=== PATIENT | female | born 1995 | race Caucasian/White ===

== ENCOUNTER 2016-07-25 22:02 | Emergency (ER) | payer BC ==
[~2016-07-25] VITALS: Ht 165.1 cm; Wt 55.7 kg
[2016-07-25 22:11] VITALS: TEMP 36.7; Ht 165.1 cm; Wt 55.7 kg
[2016-07-25] MEDS ORDERED: ONDANSETRON INJ 2 MG/ML 2 ML VIAL IV STA (22:35)
[2016-07-25] MEDS ORDERED: SODIUM CHLORIDE 0.9% 1000ML 1,000 ML IV STA (22:35)
[2016-07-25] MEDS ORDERED: BCPILLS PO (22:39)
[2016-07-25] MEDS ORDERED: OPTIRAY 320 IV PRN (22:45)
[2016-07-25 23:02] LABS: BASO % 0.1 %; BASO ABS # 0.02 K/uL (0-0.2); COMPLETE YES; EOS % 0.2 %; IG% 0.2 %; LYMPH % 12.9 %; LYMPH ABS # 1.93 K/uL (1.2-3.4); MEAN CELL VOLUME 85.3 fL (80-100); MEAN CORPUSCULAR HEMOGLOBIN 31.1 pg (25-34); MEAN CORPUSCULAR HGB CONC 36.4 g/dl (32-36); MEAN PLATELET VOLUME 9.5 fL (7.4-10.4); MONO % 3.4 %; NEUT % 83.2 %; PLATELET COUNT 364 K/uL (130-400); RED BLOOD COUNT 4.57 M/uL (4.2-5.4); WHITE BLOOD COUNT 14.98 K/uL (4.8-10.8)
[2016-07-25 23:05] LABS: ISTAT CREATININE 0.7 mg/dl; ISTAT IONIZED CALCIUM 1.16 mmol/l
[2016-07-25 23:17] LABS: BUN/CREATININE RATIO 13.6 (10-20); CALCIUM 9.7 mg/dl (8.5-10.1); CREATININE 0.9 mg/dl (0.60-1.20); POTASSIUM 3.7 mmol/L (3.5-5.1)
[2016-07-25 23:25] LABS: PREG INTERNAL NEGATIVE QC NEG CLEAR BACKGROUND; PREG INTERNAL POSITIVE QC POS CONTROL LINE
--- NOTE | 2016-07-25 23:41 | EMERGENCY ROOM VISIT NOTE ---
History Report prepared by Melo: Chanel Wills Under the Supervision of: Kal BorjasO. First contact with patient: 22:23 Chief Complaint: VOMITING Stated Complaint: VOMITING,BLURRED VISION, HAQ History of Present Illness The patient is a 20 year old female who presents to the Emergency Room with complaints of a constant headache for the past 8 hours. She was in class this afternoon whenever she developed "hazy" and "splotchy" vision. She denies double vision but reports that she felt like she did not have any peripheral vision. She returned home from class at about 4pm and developed nausea and vomiting. She states that she has been getting hot and dizzy throughout the day. Her headache has persisted. It is worse with walking around and vomiting. Her headache is located behind her left eye. The patient denies any personal history of migraines, but her mother has a history of migraine headaches so she took an Excedrin Migraine. She states that she vomited soon after taking the medication. She rates her pain as an 8/10. The patient denies fevers. She has never experienced symptoms like this before. She takes a BCP. Source of History: patient Onset: 8 hours ago Position: head Symptom Intensity: 8/10 Timing: constant Modifying Factors (Worsening): other (walking, vomiting) Associated Symptoms: + nausea, + vomiting, No fevers Note: Pt reports visual symptoms. Review of Systems See HPI for pertinent positives & negatives. A total of 10 systems reviewed and were otherwise negative. Past Medical & Surgical Medical Problems: (1) No significant active problems Family History FHx: migraine headaches Social History Smoking Status: Never Smoker Alcohol Use: occasionally Marital Status: single Housing Status: lives with roommate Occupation Status: [employer] student Current/Historical Medications Scheduled Control Pills ( Control Pills), 1 TAB PO DAILY Allergies Coded Allergies: Vancomycin (Verified Adverse Reaction, Intermediate, [place] Syndrome, 07/25) Physical Exam Vital Signs Date Time Temp Pulse Resp B/P Pulse Ox O2 Delivery O2 Flow Rate FiO2 07/26/16 01:13 80 18 125/73 100 07/26/16 00:11 70 18 124/63 99 Room Air 07/25/16 23:09 79 07/25/16 22:11 36.7 105 16 169/95 99 Room Air Physical Exam GENERAL: Patient is awake, alert, very anxious and uncomfortable. EYES: The conjunctivae are clear. The pupils are round and reactive. EARS, NOSE, MOUTH AND THROAT: The nose is without any evidence of any deformity. Mucous membranes are moist tongue is midline NECK: The neck is nontender and supple. RESPIRATORY: Normal respiratory effort is noted there is no evidence of wheezing rhonchi or rales CARDIOVASCULAR: Regular rate and rhythm noted there no murmurs rubs or gallops normal S1 normal S2 GASTROINTESTINAL: The abdomen is soft. Bowel sounds are present in all quadrants. Abdomen is nontender MUSCULOSKELETAL/EXTREMITIES: There is no evidence of gross deformity full range of motion is noted in the hips and shoulders SKIN: There is no obvious evidence of any rash. There are no petechiae, pallor or cyanosis noted. NEUROLOGIC: Patient is awake alert and oriented x3 strength is symmetric patellar reflexes are 2+ bilaterally Medical Decision & Procedures ER Provider Diagnostic Interpretation: Radiology results as stated below per my review and radiologist interpretation: CT angiography the head was obtained in the emergency department. The report was reviewed. Preliminary Findings Only See Final Report For Complete Findings CT HEAD: No acute intracranial process. CTA HEAD: No central occlusion related to the [place]. Sinus mucosal thickening/retention cysts. Prominent adenoids. Radiologist: Adolfo Goldberg M.D. Study ready at 23:45 and initial results transmitted at 00:10 Laboratory Results 07/25/16 22:48 Red Blood Count 4.57, Mean Corpuscular Volume 85.3, Mean Corpuscular Hemoglobin 31.1, Mean Corpuscular Hemoglobin Concent 36.4, Mean Platelet Volume 9.5, Neutrophils (%) (Auto) 83.2, Lymphocytes (%) (Auto) 12.9, Monocytes (%) (Auto) 3.4, Eosinophils (%) (Auto) 0.2, Basophils (%) (Auto) 0.1, Neutrophils # (Auto) 12.46, Lymphocytes # (Auto) 1.93, Monocytes # (Auto) 0.51, Eosinophils # (Auto) 0.03, Basophils # (Auto) 0.02 07/25/16 22:48 Test 07/25/16 22:48 07/26/16 00:05 White Blood Count 14.98 K/uL (4.8-10.8) Red Blood Count 4.57 M/uL (4.2-5.4) Hemoglobin 14.2 g/dL (12.0-16.0) Hematocrit 39.0 % (37-47) Mean Corpuscular Volume 85.3 fL (80-100) Mean Corpuscular Hemoglobin 31.1 pg (25-34) Mean Corpuscular Hemoglobin Concent 36.4 g/dl (32-36) Platelet Count 364 K/uL (130-400) Mean Platelet Volume 9.5 fL (7.4-10.4) Neutrophils (%) (Auto) 83.2 % Lymphocytes (%) (Auto) 12.9 % Monocytes (%) (Auto) 3.4 % Eosinophils (%) (Auto) 0.2 % Basophils (%) (Auto) 0.1 % Neutrophils # (Auto) 12.46 K/uL (1.4-6.5) Lymphocytes # (Auto) 1.93 K/uL (1.2-3.4) Monocytes # (Auto) 0.51 K/uL (0.11-0.59) Eosinophils # (Auto) 0.03 K/uL (0-0.5) Basophils # (Auto) 0.02 K/uL (0-0.2) Bedside Hemoglobin 15.0 g/dl (12.0-16.0) Bedside Hematocrit 44 % (37-47) RDW Standard Deviation 38.2 fL (36.4-46.3) RDW Coefficient of Variation 12.3 % (11.5-14.5) Immature Granulocyte % (Auto) 0.2 % Immature Granulocyte # (Auto) 0.03 K/uL (0.00-0.02) Bedside Sodium 138 mEq/L (135-144) Bedside Potassium 3.8 mEq/L (3.3-5.0) Bedside Chloride 102 mEq/L (101-112) Bedside Total CO2 21 mEq/l (24-31) Anion Gap 20.0 mmol/L (16-25) Bedside Blood Urea Nitrogen 12 mg/dl (7-18) Bedside Creatinine 0.7 mg/dl Est Creatinine Clear Calc Drug Dose 88.4 ml/min Estimated GFR () 107.4 Estimated GFR (Non- 92.7 BUN/Creatinine Ratio 13.6 (10-20) Bedside Glucose (other) 105 mg/dl (70-99) Calcium Level 9.7 mg/dl (8.5-10.1) Bedside Ionized Calcium (Leann) 1.16 mmol/l Total Bilirubin 0.6 mg/dl (0.2-1) Direct Bilirubin 0.1 mg/dl (0-0.2) Aspartate Amino Transf (AST/SGOT) 17 U/L (15-37) Alanine Aminotransferase (ALT/SGPT) 29 U/L (12-78) Alkaline Phosphatase 69 U/L (45-117) Total Protein 8.6 gm/dl (6.4-8.2) Albumin 4.3 gm/dl (3.4-5.0) Lipase 76 U/L (73-393) Human Chorionic Gonadotropin, Qual NEG (NEG) Urine Color YELLOW Urine Appearance CLEAR (CLEAR) Urine pH 7.0 (4.5-7.5) Urine Specific [place] > 1.045 (1.000-1.030) Urine Protein NEG (NEG) Urine Glucose (UA) NEG (NEG) Urine Ketones 1+ (NEG) Urine Occult Blood NEG (NEG) Urine Nitrite NEG (NEG) Urine Bilirubin NEG (NEG) Urine Urobilinogen NEG (NEG) Urine Leukocyte Esterase NEG (NEG) Laboratory results per my review. Medications Administered Medications (Trade) Dose Ordered Sig/Nakul Route Start Time Stop Time Status Last Admin Dose Admin Sodium Chloride (Nss 1000ml) 1,000 ml @ 999 mls/hr Q1H1M STAT IV 07/25/16 22:35 07/25/16 23:35 DC 07/25/16 22:56 999 MLS/HR Ondansetron HCl (Zofran Inj) 4 mg NOW STAT IV 07/25/16 22:35 07/25/16 22:36 DC 07/25/16 22:56 4 MG Ketorolac Tromethamine 30 mg 30 mg NOW STAT IV 07/26/16 00:10 07/26/16 00:11 DC 07/26/16 00:25 30 MG Sodium Chloride (Nss 1000ml) 1,000 ml @ 999 mls/hr Q1H1M STAT IV 07/26/16 00:15 07/26/16 01:15 DC 07/26/16 00:26 999 MLS/HR Ondansetron HCl (ZOFRAN ODT 4MG Home Pack) 1 homepack UD ONCE PO 07/26/16 00:45 07/26/16 00:46 DC 07/26/16 01:09 1 HOMEPACK Oxycodone HCl (Roxicodone Immediate Rel 5MG Home Pack) 1 homepack UD ONCE PO 07/26/16 00:45 07/26/16 00:46 DC 07/26/16 01:09 1 HOMEPACK ED Course 2223: The patient was evaluated in room B6. A complete history and physical examination were performed. 2235: Zofran 4 mg IV, NSS 1000 ml @ 999 mls/hr IV 0009: I reassessed the patient and she is doing better but still having some pain. 0010: Toradol 30 mg IV 0015: NSS 1000 ml @ 999 mls/hr IV 0045: Oxycodone HCl 5 mg PO 1 homepack, Zofran 4 mg PO 1 homepack 0057: I reassessed the patient at this time. She is feeling better and resting comfortably. I discussed the results and treatment plan with the patient. I answered all pertaining questions that she had. She expressed understanding and verbalized agreement. The patient will be discharged home. Medical Decision Differential diagnosis: Etiologies such as migraine headache, meningitis, sinusitis, CO exposure, ICH, SAH, infection, tumor, headache, sinus thrombosis, arterial dissection, as well as others were entertained. Nursing notes reviewed. The patient is a 20-year-old female who presented to the emergency department for an evaluation of headache. The patient had unilateral headache which appeared to be consistent with a migraine headache. The patient was treated with IV fluids IV pain medication IV antiemetics. On subsequent reevaluation she was feeling much better. The patient's onset of symptoms and normal CAT scan make me feel confident that this likely does not represent a subarachnoid hemorrhage. She does not a fever or meningismus. She was encouraged to rest and avoid any strenuous activity. I do not feel she does require a lumbar puncture at this time. She was also encouraged to follow-up with the [facility] for further evaluation and consider referral to a headache specialist for possible further workup. She was also encouraged to return to the emergency department immediately if symptoms change worsen or if the need arises. Impression Primary Impression: Migraine Scribe Attestation The scribe's documentation has been prepared under my direction and personally reviewed by me in its entirety. I confirm that the note above accurately reflects all work, treatment, procedures, and medical decision making performed by me. Departure Information Dispostion Home / Self-Care Referrals [facility] Forms HOME CARE DOCUMENTATION FORM, IMPORTANT VISIT INFORMATION, School Instructions, Work Instructions Patient Instructions Headache Pain, My [facility] Additional Instructions Call [facility] in the morning to schedule a follow-up appointment. You may require a referral to a headache specialist to further evaluate the cause of your headache. Rest and avoid any strenuous activity. Return to the emergency department immediately symptoms change worsen or if the need arises. Problem Qualifiers Primary Impression: Migraine Migraine type: with aura Status migrainosus presence: without status migrainosus Intractability: not intractable Qualified Codes: G43.109 - Migraine with aura, not intractable, without status migrainosus
[2016-07-26] MEDS ORDERED: KETOROLAC TROMETHAMINE 30 MG/ML VIAL IV STA (00:10)
[2016-07-26] MEDS ORDERED: SODIUM CHLORIDE 0.9% 1000ML 1,000 ML IV STA (00:15)
[2016-07-26 00:30] LABS: URINE APPEARANCE CLEAR (CLEAR); URINE BILIRUBIN NEG (NEG); URINE COLOR YELLOW; URINE NITRITE NEG (NEG); URINE SPECIFIC GRAVITY > 1.045 (1.000-1.030); UROBILINOGEN NEG (NEG)
[2016-07-26 00:37] LABS: MANUAL MICROSCOPIC REQUIRED? NO; REVIEW REQ? NO
[2016-07-26] MEDS ORDERED: ONDANSETRON HOME PACK 4MG OD TAB PO ONE (00:45)
[2016-07-26] MEDS ORDERED: OXYCODONE IR HOME PACK PO ONE (00:45)
[2016-07-26 01:13] VITALS: BP 125/73; PULSE 80; O2SAT 100
--- NOTE | 2016-07-26 06:45 | DIAGNOSTIC IMAGING REPORT ---
HEAD CTA HISTORY: Headache visual change TECHNIQUE: Multiaxial CT images of the head were performed both before and after the intravenous administration of contrast to evaluate the major cerebral vessels. Maximum intensity projection images were also obtained. COMPARISON: None. FINDINGS: There is no mass, hematoma, midline shift, or acute infarct. Visualized intracranial internal carotid arteries, distal vertebral arteries, and basilar artery are widely patent. There is no significant stenosis, occlusion, or aneurysm seen within the bilateral ACAs, MCAs, or press tender. IMPRESSION: No significant stenosis, occlusion, or aneurysm within the [place]. Is noted made of mild mucosal thickening of the sinuses. Electronically signed by: James Castro M.D. 07/26/2016 6:44 AM Dictated Date/Time: 07/26/2016 6:41 AM
== END 2016-07-26 01:13 | disposition home or self-care (01) ==
LOC: C.EDB 22:05
DX: G43.109 Migraine with aura, not intractable, without status migrainosus (principal)